=== PATIENT | female | born 1980 | race Caucasian/White ===

== ENCOUNTER 2021-09-09 11:52 | Outpatient (CLI) | payer OTHER, SELFPAY ==
--- NOTE | ~2021-09-09 | XR_ITS ---
XR abdomen/kub 1V 09/09/2021 12:14 INDICATION: Right flank pain TECHNIQUE: KUB COMPARISON: None FINDINGS: Bowel gas pattern is normal. There is no evidence of free air, mass, organomegaly, ascites or obstruction. No abnormal calculi are seen. The bones appear intact. IMPRESSION: 1: No acute abdominal abnormality identified. Reviewed, dictated and finalized at location B.
== END 2021-09-09 11:53 | disposition home or self-care (01) ==
PROVIDERS: PCP Family Medicine; Visit Provider Nurse Practitioner Family
DX: R10.2 Pelvic and perineal pain (principal)
CPT/HCPCS: 74018

== ENCOUNTER → 2021-09-19 10:55 | Outpatient (CLI) | payer OTHER, SELFPAY ==
--- NOTE | ~2021-09-19 | MM_ITS ---
EXAMINATION: MM screening [facility] BI w tammie HISTORY: Screening TECHNIQUE: Craniocaudal and mediolateral oblique 3-D tomosynthesis images were obtained and synthetic 2-D images were generated. CAD analysis was submitted and interpreted. COMPARISON: No prior mammogram is available for comparison at this institution. BREAST PARENCHYMAL COMPOSITION: There are scattered areas of fibroglandular density. FINDINGS: There is no evidence of suspicious mass, calcification, or architectural distortion to sugg est malignancy in either breast. There has been no suspicious interval change. IMPRESSION: 1. No mammographic evidence of malignancy. 2. Recommend routine screening mammography in one year. BI-RADS Category 1: Negative Reviewed, dictated and finalized at location A.
== END ==
PROVIDERS: Visit Provider Student in an Organized Health Care Education/Training Program
DX: Z12.31 Encounter for screening mammogram for malignant neoplasm of breast (principal)
CPT/HCPCS: 77063; 77067

== ENCOUNTER → 2022-02-03 12:28 | Outpatient (CLI) | payer OTHER, SELFPAY ==
--- NOTE | ~2022-02-03 | XR_ITS ---
EXAMINATION: XR chest 2V 02/03/2022 13:27 INDICATION: Cough PROCEDURE: 2 view chest COMPARISON: 04/15/2013 FINDINGS: The lungs are clear. The cardiomediastinal silhouette is within normal limits. There are no pleural effusions. There is no pneumothorax suspected. IMPRESSION: 1: NO ACUTE CARDIOPULMONARY DISEASE. Reviewed, dictated and finalized at location B.
== END ==
PROVIDERS: PCP Family Medicine; Visit Provider Nurse Practitioner Family
DX: R05.9 Cough, unspecified (principal)
CPT/HCPCS: 71046

== ENCOUNTER 2022-03-06 07:51 | Outpatient (CLI) | payer BC, SELFPAY ==
--- NOTE | 2022-03-13 14:49 | WPDPFTINT ---
PFT Procedure Performed PFT Procedure Performed Spirometry with Pre/Post Bronchodilator Plethysmography (Lung Vol) Diffusing Cap (DLCO) Flow Vol Loop PFT Interpretation DOS: 03/06/2022 REQUESTING: Geoffrey Gonzalez NP REASON FOR TESTING: Chronic cough PULMONARY FUNCTION TESTS Results are reliable and reproducible. The patient had good effort. She had persistent coughing throughout the test. Spirometry: Pre-bronchodilator FEV1 is 81%, 2.7 L normal. The FVC is 98%, 3.97 L, normal. There is a decrease in the FEV1/ FVC ratio, 68% predicted, And this represents mild airflow obstruction. The FEF 25-75 is 56% predicted. After bronchodilator administration there is no significant increase in flows. Lung volumes: the total lung capacity is normal 117% predicted. This is 6.43 L. the residual volume is 142% predicted, moderate air trapping. The FEV1/ FVC ratio is 38% which is increased. This is consistent with air trapping. The airway resistance is elevated, 150%. Diffusion: DLCO is 107%, normal. Flow volume loop: The flow volume loop shows normal inspiratory limb with mild attenuation of the peak of the expiratory limb. There is no scooping of the expiratory limb. This is a nonspecific finding. IMPRESSION: This pulmonary function test with bronchodilator administration shows a mild obstructive ventilatory impairment without a significant response to bronchodilator administration. There is moderate air trapping. Normal diffusion. Lack of response to bronchodilators should not preclude use if clinically indicated. Dayana Peterson MD
== END 2022-03-06 07:52 | disposition home or self-care (01) ==
LOC: ANHPFT 07:52
PROVIDERS: PCP Family Medicine; Visit Provider Nurse Practitioner Family
DX: R05.3 Chronic cough (principal); R06.2 Wheezing
CPT/HCPCS: 94060; 94375; 94726; 94729

== ENCOUNTER → 2022-10-10 15:17 | Outpatient (CLI) | payer BC, SELFPAY ==
--- NOTE | ~2022-10-10 | MM_ITS ---
EXAMINATION: MM screening [facility] BI w tammie HISTORY: Screening mammogram TECHNIQUE: Craniocaudal and mediolateral oblique 3-D tomosynthesis images were obtained and synthetic 2-D images were generated. CAD analysis was submitted and interpreted. COMPARISON: 09/19/2021 bilateral screening mammogram Complete left breast ultrasound BREAST PARENCHYMAL COMPOSITION: The breasts are almost entirely fatty. FINDINGS: There is no evidence of suspicious mass, calcification, or architectural distortion to sugg est malignancy in either breast. There has been no suspicious interval change. IMPRESSION: 1. No mammographic evidence of malignancy. 2. Recommend routine screening mammography in one year. BI-RADS Category 1: Negative Reviewed, dictated and finalized at location A. GER CONTENT
== END ==
PROVIDERS: PCP Family Medicine; Visit Provider Student in an Organized Health Care Education/Training Program
DX: Z12.31 Encounter for screening mammogram for malignant neoplasm of breast (principal)
CPT/HCPCS: 77063; 77067

== ENCOUNTER 2023-09-28 00:27 | Emergency (ER) | payer OTHER, SELFPAY ==
--- NOTE | ~2023-09-28 | XR_ITS ---
Clinical Indication: Chest pain PA and lateral views of the chest: Comparison: 02/03/2022 Findings: The lungs are clear, without evidence of focal consolidation or pleural effusion. Cardiome diastinal silhouette is within normal limits. Bones and soft tissues are unremarkable. Impression: Normal chest. Reviewed, dictated and finalized at location . [employer] FREIGHT INSPECTOR Impression: Normal chest.
[2023-09-28 00:31] VITALS: BP 149/92; PULSE 115; RESP 20; TEMP 36.8; O2SAT 100
--- NOTE | 2023-09-28 00:33 | ECG_ITS ---
Measurements Intervals [place] Rate: 102 P: 34 ME: 125 QRS: -3 QRSD: 85 T: -2 QT: 341 QTc: 445 Interpretive Statements SINUS TACHYCARDIA LOW QRS VOLTAGE IN PRECORDIAL LEADS RSR' IN V1 OR V2, PROBABLY NORMAL VARIANT NONSPECIFIC ST & T-WAVE ABNORMALITY- ANTEROLAT/INF LEADS BORDERLINE ECG NO PREVIOUS ECG AVAILABLE FOR COMPARISON Electronically Signed On 09-28-2023 6:22:12 [employer]NER by Alex Galvan D.O.
[2023-09-28 00:56] VITALS: PULSE 101
[2023-09-28 00:57] VITALS: BP 154/90; PULSE 102; RESP 18; O2SAT 100
[2023-09-28] MEDS: ASPIRIN 81 MG CHEWABLE TABLET 324 MG PO (00:58)
[2023-09-28 01:04] LABS: Basophils Absolute Auto 0.1 K/mm3 (0.0-0.1); Basophils Percent Auto 0.6 % (0.2-1.2); Eosinophils Absolute Auto 0.9 K/mm3 (0-0.3); Eosinophils Percent Auto 9.5 % (0-4.4); Hematocrit 43.5 % (37.0-47.0); Hemoglobin 13.6 g/dL (12.0-15.0); Immature Granulocyte Absolute 0.02 K/mm3 (0.00-0.031); Immature Granulocyte Percent A 0.2 % (0-0.5); Lymphocytes Absolute Auto 2.91 K/mm3 (0.9-3.2); Lymphocytes Percent Auto 31.2 % (18.3-44.2); Mean Corpuscular HGB Conc 31.3 g/dl (32-36); Mean Corpuscular Hemoglobin 27.6 pg (26-34); Mean Corpuscular Volume 88.2 fl (80-100); Mean Platelet Volume 10.7 fl (7.4-10.4); Monocytes Absolute Auto 0.7 K/mm3 (0.1-0.6); Monocytes Percent Auto 7.5 % (2.6-8.5); Neutrophils Absolute Auto 4.7 K/mm3 (1.3-6.7); Platelet Count Result 238 k/mm3 (150-375); Red Blood Count 4.93 M/mm3 (4.2-5.4); Red Cell Distribution Width 13.9 % (11.5-14.5); White Blood Count 9.3 K/mm3 (4.5-10.0)
--- NOTE | 2023-09-28 01:13 | ED.GENADULT ---
HPI - General Adult General Chief complaint: Chest Pain Stated complaint: epigastric pain Time Seen by Provider: 09/28/23 00:55 History of Present Illness HPI narrative: Patient is a 43-year-old female who presents the emergency department with chief complaint of chest pain. The patient states that yesterday she had an episode of discomfort in her chest and then today several hours ago started having an uncomfortable feeling in her chest. Patient reports the pain is not improved by anything reports it is worsened by movement. Patient states that she has no prior history of cardiac disease reports that she is never had a stress test or cardiac cath. Related Data Home Medications Medication Instructions Recorded Confirmed multivitamin,[id number] 1 tablet PO DAILY 11/27/19 01/31/23 (Complete Multivitamin tablet) Allergies Allergy/AdvReac Type Severity Reaction Status Date / Time No Known Allergies Allergy Verified 01/31/23 08:49 Review of Systems Review of Systems: A 10 system review of systems was completed on the patient and is negative except for what is stated in the HPI. Nursing and ancillary documentation was reviewed. [facility] Past Medical History Medical History Acid reflux Acute suppurative otitis media of right ear without spontaneous rupture of tympanic membrane Angular cheilitis BMI 36.0-36.9,adult BMI 38.0-38.9,adult BMI 40.0-44.9, adult Body mass index [BMI] 32.0-32.9, adult (06/12/19) Body mass index [BMI] 33.0-33.9, adult (05/19/19) Body mass index [BMI] 37.0-37.9, adult (09/26/17) Body mass index [BMI] 39.0-39.9, adult (10/01/18) Body mass index [BMI] 40.0-44.9, adult (12/04/17) Cough Dietary counseling and surveillance (06/26/19) Dysfunction of right eustachian tube EBV infection Encounter for screening for malignant neoplasm of cervix Family history of ovarian cancer Low vitamin B12 level Low vitamin D level Screening for lipid disorders Seasonal allergic reaction Surgical History Surgical History [place] teeth removed Family History Family History Father Hypertension Family history of diabetes mellitus in first degree relative Diabetes mellitus Grandparent Family history of pancreatic cancer Family history of malignant neoplasm of ovary Mother Family history of malignant neoplasm of ovary Sibling No problems noted. 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 HEAD: Normocephalic, atraumatic. EYES: PERRLA and EOMI. ENT: Nares clear, no rhinorrhea or epistaxis. Mucous membranes moist. NECK: Supple. CHEST: Clear to auscultation. No respiratory distress. HEART: Regular rate and rhythm. No murmur heard. Normal peripheral pulses. ABDOMEN: Soft, nontender, nondistended, no
[2023-09-28 01:17] LABS: Alanine Aminotransferase 16 U/L (6-35); Albumin Level 4.4 g/dL (3.5-5.1); Alkaline Phosphatase 71 U/L (38-126); Anion Gap 8 mmol/L (8-16); Aspartate Amino Transferase 23 U/L (14-36); Bilirubin,Total 0.6 mg/dL (0.2-1.3); Blood Urea Nitrogen 12 mg/dL (7-17); Calcium 9.4 mg/dL (8.4-10.2); Carbon Dioxide 27 mmol/L (22-30); Chloride 103 mmol/L (98-107); Estimated CRCL calculation 106 ml/min; Estimated Glomerular Filt Rate > 60; Glucose 104 mg/dL (65-110); Lipase 144 U/L (23-300); Potassium 3.7 mmol/L (3.4-5.0); Sodium 138 mmol/L (137-145)
[2023-09-28 01:18] LABS: INR 0.9; Prothrombin Time 12.5 Seconds (11.1-14.7)
[2023-09-28 01:19] LABS: Partial Thromboplastin Time 27.4 SECONDS (22.3-36.8)
[2023-09-28 01:28] LABS: Troponin I < 0.012 ng/mL (0.000-0.034)
[2023-09-28 02:18] VITALS: BP 111/78; PULSE 92; RESP 19; O2SAT 100
[2023-09-28 03:57] LABS: Troponin I < 0.012 ng/mL (0.000-0.034)
[2023-09-28 04:19] VITALS: BP 130/78; PULSE 83; RESP 15; TEMP 36.8; O2SAT 99
== END 2023-09-28 04:20 | disposition home or self-care (01) ==
PROVIDERS: Emergency Provider Emergency Medicine; PCP Family Medicine
DX: R07.89 Other chest pain (principal)
CPT/HCPCS: 36415; 71046; 80053; 83690; 84484; 85025; 85610; 85730; 93005; 99284; A9270

== ENCOUNTER → 2023-12-05 10:30 | Outpatient (CLI) | payer OTHER, SELFPAY ==
--- NOTE | ~2023-12-05 | MM_ITS ---
EXAMINATION: MM screening [facility] BI w tammie HISTORY: Screening TECHNIQUE: Craniocaudal and mediolateral oblique 3-D tomosynthesis images were obtained and synthetic 2-D images were generated. CAD analysis was submitted and interpreted. COMPARISON: Comparison to multiple prior studies sequentially, with oldest reviewed study dated 11/2020. BREAST PARENCHYMAL COMPOSITION: The breasts are almost entirely fatty. FINDINGS: There is no evidence of suspicious mass, calcification, or architectural distortion to sugg est malignancy in either breast. There has been no suspicious interval change. IMPRESSION: 1. No mammographic evidence of malignancy. 2. Recommend routine screening mammography in one year. BI-RADS Category 1: Negative Reviewed, dictated and finalized at location A. LSTERER INSIDE
== END ==
PROVIDERS: PCP Obstetrics & Gynecology; Visit Provider Obstetrics & Gynecology
DX: Z12.31 Encounter for screening mammogram for malignant neoplasm of breast (principal)
CPT/HCPCS: 77063; 77067

== ENCOUNTER 2025-02-10 15:25 | Outpatient (CLI) | payer OTHER, SELFPAY ==
--- NOTE | ~2025-02-10 | MM_ITS ---
EXAMINATION: MM screening [facility] BI w tammie HISTORY: Screening TECHNIQUE: Craniocaudal and mediolateral oblique 3-D tomosynthesis images were obtained and synthetic 2-D images were generated. CAD analysis was submitted and interpreted. COMPARISON: 12/05/2023 and dating back to 09/19/2021 BREAST PARENCHYMAL COMPOSITION: There are scattered areas of fibroglandular density. FINDINGS: Punctate calcifications are detected bilaterally, stable and benign in appearance, primaril y dermal in origin. Stable parenchymal pattern without suspicious microcalcifications, architectural distortion, discrete masses or significant asymmetry. IMPRESSION: 1. No mammographic evidence of malignancy. 2. Recommend routine screening mammography in one year. BI-RADS Category 2: Benign finding(s). Reviewed, dictated and finalized at location A.
== END 2025-02-10 15:26 | disposition home or self-care (01) ==
LOC: MICIMG 15:26
PROVIDERS: PCP Nurse Practitioner Family; Visit Provider Nurse Practitioner Family
DX: Z12.31 Encounter for screening mammogram for malignant neoplasm of breast (principal)
CPT/HCPCS: 77063; 77067

== ENCOUNTER 2025-08-21 12:56 | Outpatient (CLI) | payer OTHER, SELFPAY ==
--- NOTE | ~2025-08-21 | CT_ITS ---
EXAMINATION: CT sinus wo con COMPARISON: None HISTORY: DEVIATED NASAL SEPTUM TECHNIQUE: Axial images were obtained without IV contrast. Sagittal, coronal reconstruction images were obtained from the axial views. CT scan performed using dose optimization techniques including the following automated exposure control; adjustment of mA and/or kV; use of iterative reconstruction technique. Automatic exposure control was used to reduce radiation dose. Permanent radiation dose record is archived to PACS. FINDINGS: The nasal bones are intact. Anterior maxillary sinus decker and zygomatic arches are intact. Temporomandibular joints intact. Orbital floors and medial orbits are intact. The visualized brain parenchyma and optic globes appear unremarkable. The soft tissues appear unremarkable Frontal sinus is unremarkable. Moderate to severe mucosal thickening in the ethmoidal air cells bilaterally. Minimal mucosal thickening within the maxillary sinuses. The ostiomeatal complexes are patent but narrowed. Nasal septum in the midline. Mild thickening of the turbinates but no significant narrowing of the nasal cavities. The bony nasal septum posteriorly is deviated slightly to the left. Minimal mucosal thickening in the sphenoid sinuses. Mild thickening of the sphenoid sinus decker. The remaining visualized sinuses demonstrate no gross osseous wall thickening or obstruction IMPRESSION: Sinusitis detailed above Reviewed, dictated and finalized at location P. IMPRESSION: Sinusitis detailed above
== END 2025-08-21 12:57 | disposition home or self-care (01) ==
LOC: MICIMG 12:57
PROVIDERS: PCP Nurse Practitioner Family; Visit Provider Nurse Practitioner Family
DX: J34.2 Deviated nasal septum (principal); J32.9 Chronic sinusitis, unspecified
CPT/HCPCS: 70486